=== PATIENT | female | born 1980 | race Two or more races ===

== ENCOUNTER 2019-02-08 10:02 | Day surgery (SDC) | payer OTHER ==
[~2019-02-08] VITALS: Ht 162.6 cm; Wt 76.2 kg
[2019-02-08 10:30] VITALS: BP 130/70
[2019-02-08 16:35] VITALS: BP 121/80
== END 2019-02-08 15:45 | disposition home or self-care (01) ==
LOC: DS 10:02 → OR 12:00 → DS 12:00
DX: N92.1 Excessive and frequent menstruation with irregular cycle (principal); J45.909 Unspecified asthma, uncomplicated; D64.9 Anemia, unspecified; E78.00 Pure hypercholesterolemia, unspecified; Z79.899 Other long term (current) drug therapy; Z98.891 History of uterine scar from previous surgery; Z98.890 Other specified postprocedural states
CPT/HCPCS: J0690; J2175; J2250; J2270; J2405; J2704; J3010; J7120